=== PATIENT | female | born 1955 | race Caucasian/White ===

== ENCOUNTER 2019-05-27 17:06 | Emergency (ER) | payer OTHER, MEDICAID, SELFPAY ==
[2019-05-27 17:36] VITALS: BP 136/88; PULSE 74; RESP 20; TEMP 36.3; O2SAT 97; BMI 35.7
--- NOTE | 2019-05-27 18:57 | ED.SKABFB ---
HPI - Skin/Abscess/Foreign Bdy General Chief complaint: Skin/Abscess/Foreign Body Stated complaint: rt hip mass black/ blue surg 3x weeks Time Seen by Provider: 05/27/19 18:30 Source: patient Mode of arrival: Family Vehicle Limitations: no limitations History of Present Illness HPI narrative: 63-year-old female smoker with hypertension and hyperlipidemia presents with relatively painless swelling on her right lateral hip. She states that she was ambulating and felt a pop and then noticed swelling and some discoloration. Patient had a right total hip performed at [facility] a few weeks ago. She denies any hip pain. She denies any fever chills and has no nausea, vomiting or diarrhea. Related Data Home Medications Medication Instructions Recorded Confirmed [TUSSIN DM] 5 ml PRN #0 12/02/16 acetaminophen [Tylenol Extra PRN #0 12/02/16 Strength] albuterol sulfate [Ventolin HFA] PRN #0 12/02/16 atorvastatin [Lipitor] 40 mg OR HS #0 12/02/16 carvedilol [Coreg] 6.25 mg OR BID #0 12/02/16 duloxetine 30 mg OR AMCC #0 12/02/16 furosemide 40 mg OR QAM #0 12/02/16 insulin glargine [Lantus U-100 15 u SQ HS #0 12/02/16 Insulin] insulin glulisine U-100 [Apidra 7 u SQ TID #0 12/02/16 U-100 Insulin] ipratropium-albuterol PRN #0 12/02/16 lisinopril 2.5 mg OR QAM #0 12/02/16 methocarbamol PRN #0 12/02/16 Previous Rx's Medication Instructions Recorded hydrocodone-acetaminophen [[place]] 1 - 2 tab PO Q6HP PRN #10 tab 12/02/16 cephalexin [Keflex] 500 mg PO QID 7 Days #28 cap 05/27/19 Allergies Allergy/AdvReac Type Severity Reaction Status Date / Time No Known Allergies Allergy Uncoded 05/27/19 17:41 Review of Systems Constitutional Constitutional: Denies chills, Denies fatigue, Denies fever(s), Denies frequent falls, Denies lethargy and Denies weakness Eyes Eyes: Denies change in vision, Denies eye discharge, Denies irritation and Denies loss of vision ENT Ears, Nose, Mouth, and Throat: Denies change in voice, Denies dizziness, Denies neck pain, Denies sore throat and Denies throat swelling Cardiovascular Cardiovascular: Denies chest pain, Denies irregular heart rhythm, Denies lightheadedness, Denies palpitations, Denies dyspnea, Denies dyspnea on exertion and Denies orthopnea Respiratory Respiratory: Denies cough, Denies dyspnea, Denies dyspnea on exertion and Denies wheezing Gastrointestinal Gastrointestinal: Denies abdominal pain, Denies change in bowel habits, Denies diarrhea, Denies nausea and Denies vomiting Genitourinary Genitourinary: Denies hematuria, Denies flank pain, Denies urinary incontinence and Denies urinary urgency Musculoskeletal Musculoskeletal: Denies back pain, Denies muscle weakness, Denies neck pain, Denies numbness and Denies tingling Integumentary/Breasts Skin/Breast: Denies pruritus, Reports erythema, Denies rash, Reports skin swelling and Denies wounds Neurologic Neurologic: Denies behavioral changes, Denies confusion, Denies dizziness, Denies frequent falls, Denies loss of vision, Denies numbness, Denies tingling and Denies weakness Psychiatric Psychiatric: Denies anxiety, Denies behavioral changes, Denies confusion, Denies depression, Denies homicidal ideation and Denies suicidal ideation Endocrine Endocrine: Denies fatigue, Denies flushing and Denies palpitations Hematologic/Lymphatic Hematologic/Lymphatic: Denies easy bruising Allergic/Immunologic Allergic/Immunologic: Denies urticaria, Denies throat swelling and Denies wheezing Patient History Social History Smoking Status: Current some day smoker alcohol intake frequency: 0-2 drinks per day Substance Use Type: does not use Exam Narrative Exam Narrative: GENERAL 63 year old patient appears stated age. Well-nourished, well-developed patient, in mild distress. HEAD: Atraumatic. Normocephalic. EYES: Pupils equal round and reactive. Extraocular motions intact. No scleral icterus. No injection or drainage. ENT: Nose without bleeding, purulent drainage. Throat without erythema, tonsillar hypertrophy or exudate. Airway patent. NECK: Trachea midline. Non tender CARDIOVASCULAR: Regular rate and rhythm without murmurs, gallops, or rubs. RESPIRATORY: Clear to auscultation. Breath sounds equal bilaterally. No wheezes, rales, or rhonchi. GASTROINTESTINAL: Abdomen soft, non-tender, nondistended. EXTREMITIES: No edema or joint tenderness. Full range of motion of the right hip with flexion extension at the hip as well as internal and external rotation is absent of pain BACK: Nontender without deformity or crepitance. No flank tenderness. NEURO: AOx3. SKIN: Swollen, minimally warm area lateral to right hip. Incision is clean, dry and intact. There is very minimal color change and certainly no significant demarcation. Most likely hematoma is Initial Vital Signs Initial Vital Signs: Vital Signs Temperature 97.3 F L 05/27/19 17:36 Pulse Rate 74 05/27/19 17:36 Respiratory Rate 20 05/27/19 17:36 Blood Pressure 136/88 05/27/19 17:36 Pulse Oximetry 97 05/27/19 17:36 Course Orders Ordered: ED Orders 05/27/19 19:02 XR hip w pel if done RT 2V Stat 05/27/19 20:50 Basic Metabolic Panel Stat Complete Blood Count AUTO DIFF Stat Procalcitonin Stat Discontinued Medications Cefazolin Sodium (Keflex 250 Mg Prepack) 1 bottle MISC SEEINSTR ONE Stop: 05/27/19 22:41 Last Admin: 05/27/19 22:57 Dose: 1 prepack Documented by: NATASHA Cefazolin Sodium (Keflex 250 Mg Prepack) 1 bottle MISC SEEINSTR ONE Stop: 05/27/19 22:43 Last Admin: 05/27/19 23:02 Dose: 1 prepack Documented by: NATASHA Oxycodone/Acetaminophen (Percocet 5/325) 2 tab PO NOW ONE Stop: 05/27/19 22:41 Last Admin: 05/27/19 22:57 Dose: 2 tab Documented by: NATASHA Consultations Consultation #1: call to professor of communication and writing ortho at [facility] whom recommends ABX, DC and follow up with her own orthopedist Vital Signs Vital signs: Vital Signs - 8 hr 05/27/19 19:30 05/27/19 21:08 05/27/19 22:36 Pulse Rate 66 75 78 Respiratory Rate 18 18 16 Blood Pressure [Left Arm] 119/69 128/58 L 101/56 L Pulse Oximetry 96 97 95 MDM - Skin/Abscess/Foreign Bdy Lab Data Result diagrams: 05/27/19 20:50 05/27/19 20:50 Labs: Lab Results 05/27/19 05/27/19 05/27/19 Range/Units 20:50 20:50 20:50 WBC 8.3 (4.5-11.0) X10^3/uL RBC 3.74 L (4.0-5.2) X10^6/uL Hgb 11.4 L (12.0-16.0) g/dL Hct 33.4 L (36-46) % MCV 89.2 (80-100) fL MCH 30.4 (26-34) PG MCHC 34.1 (30-36) % RDW 14.1 (11.6-14.8) % Plt Count 398 (150-400) X10^3/uL Neut % (Auto) 65.3 (50-75) % Lymph % (Auto) 22.0 L (25-40) % [place] % (Auto) 6.6 (3-14) % Eos % (Auto) 5.3 H (2-4) % Baso % (Auto) 0.8 (0-2) % Neut # (Auto) 5400 (4958-4769) /uL Lymph # (Auto) 1800 (5304-9176) /uL [place] # (Auto) 600 (0-900) /uL Eos # (Auto) 400 (0-450) /uL Baso # (Auto) 100 (0-100) /uL Sodium 142 (137-145) mmol/L Potassium 3.8 (3.4-5.1) mmol/L Chloride 100 (98-107) mmol/L Carbon Dioxide 33 H (22-32) mmol/L BUN 19 H (7-17) mg/dL Creatinine 1.30 H (0.52-1.04) mg/dL Estimated GFR 41.5 L (>60) mL/min BUN/Creatinine Ratio 14.6 (6-22) Glucose 147 H (80-110) mg/dL Calcium 10.7 H (8.4-10.2) mg/dL Procalcitonin < 0.05 (<0.5) ng/mL Point of Care Testing Glucose POC 151 MDM Narrative Medical decision making narrative: Multiple etiologies considered including hematoma, postop infection, hardware malfunction or dislocation. X-ray and exam would suggest no fracture, dislocation or hardware problem. Incision is clean, dry and intact without dehiscence. Infection considered but thought less likely. Purplish discoloration most consistent with hematoma. Return precautions given which patient clearly understands based on her ability to verbalize them back. Questions answered to her apparent satisfaction Discharge Plan Departure Patient Disposition: Home Clinical Impression: Hematoma of right hip Qualifiers: Encounter type: initial encounter Qualified Code(s): S70.01XA - Contusion of right hip, initial encounter Discharge Date/Time: 05/27/19 23:15 Instructions: DI for Hematoma (Bruise) Activity Restrictions/Additional Instructions: *You have been diagnosed with [right hip hematoma] *What to do: *Take medications as directed *Follow up with your orthopedist in 2-3 days, call for an appointment. Let them know you were seen in the Emergency Department and that we ask that you be seen in follow up *Return to ER if you should have any new, worsening or concerning symptom Prescriptions: New cephalexin [Keflex] 500 mg capsule 500 mg PO QID 7 Days Qty: 28 RF: 0 No Action hydrocodone-acetaminophen [[place]] 5 MG/325 MG tablet 1 - 2 tab PO Q6HP PRNQty: 10 RF: 0 atorvastatin [Lipitor] 40 MG tablet 40 mg OR HS Qty: 0 RF: 0 insulin glulisine U-100 [Apidra U-100 Insulin] 100 UNIT/1 ML solution 7 u SQ TID Qty: 0 RF: 0 carvedilol [Coreg] 6.25 MG tablet 6.25 mg OR BID Qty: 0 RF: 0 duloxetine 30 MG capsule,delayed release(DR/EC) 30 mg OR AMCC Qty: 0 RF: 0 ipratropium-albuterol 3 ML solution for nebulization PRNQty: 0 RF: 0 insulin glargine [Lantus U-100 Insulin] 100 UNIT/1 ML solution 15 u SQ HS Qty: 0 RF: 0 furosemide 40 MG tablet 40 mg OR QAM Qty: 0 RF: 0 methocarbamol 500 MG tablet PRNQty: 0 RF: 0 lisinopril 2.5 MG tablet 2.5 mg OR QAM Qty: 0 RF: 0 acetaminophen [Tylenol Extra Strength] 500 MG tablet PRNQty: 0 RF: 0 [SORAYAIN DM] 5 ml PRNQty: 0 RF: 0 albuterol sulfate [Ventolin HFA] 90 MCG/PUFF HFA aerosol inhaler PRNQty: 0 RF: 0
--- NOTE | 2019-05-27 19:02 | DI.RAD.S_ITS ---
PROCEDURE: XR HIP W PEL IF DONE RT 2V INDICATIONS: hip pain, recent surgery TECHNIQUE: AP pelvis and lateral view of the right hip acquired. COMPARISON: [facility], [place], [id number] W PEL IF PERFORMED, 12/02/2016, 11:45. FINDINGS: Bones: Patient is status post total right hip arthroplasty, with hardware components in expected positions. The hip joint appears congruent. The visualized bony structures appear intact. Soft tissues: Overlying postoperative changes are noted. No suspicious soft tissue densities. IMPRESSION: Expected appearance post total right hip arthroplasty. Dictated by: Erickson Mcarthur M.D. on 05/27/2019 at 19:27 Approved by: Erickson Mcarthur M.D. on 05/27/2019 at 19:27
[2019-05-27 19:30] VITALS: BP 119/69; PULSE 66; RESP 18; O2SAT 96
--- NOTE | 2019-05-27 19:36 | PC.NURSE ---
Healing incision visible right hip, edges aproximated and without purulent discharge. Area surrounding incision is red, skin hot to the touch.
[2019-05-27 21:07] LABS: Add Manual Diff / Slide Review NO; Basophils Absolute Auto 100 /uL (0-100); Basophils Percent Auto 0.8 % (0-2); Eosinophils Absolute Auto 400 /uL (0-450); Eosinophils Percent Auto 5.3 % (2-4); Hematocrit 33.4 % (36-46); Hemoglobin 11.4 g/dL (12.0-16.0); Lymphocytes Absolute Auto 1800 /uL (1100-4500); Mean Corpuscular HGB Conc 34.1 % (30-36); Mean Corpuscular Hemoglobin 30.4 PG (26-34); Mean Corpuscular Volume 89.2 fL (80-100); Monocytes Absolute Auto 600 /uL (0-900); Monocytes Percent Auto 6.6 % (3-14); Neutrophils Absolute Auto 5400 /uL (1500-7000); Neutrophils Percent Auto 65.3 % (50-75); Platelet Count 398 X10^3/uL (150-400); Red Blood Cell Count 3.74 X10^6/uL (4.0-5.2); Red Cell Distribution Width 14.1 % (11.6-14.8); White Blood Cell Count 8.3 X10^3/uL (4.5-11.0)
[2019-05-27 21:08] VITALS: BP 128/58; PULSE 75; RESP 18; O2SAT 97
[2019-05-27 21:25] LABS: BUN Creatinine Ratio 14.6 (6-22); Blood Urea Nitrogen 19 mg/dL (7-17); Calcium 10.7 mg/dL (8.4-10.2); Carbon Dioxide 33 mmol/L (22-32); Chloride 100 mmol/L (98-107); Estimated Glomerular Filt Rate 41.5 mL/min (>60); Glucose 147 mg/dL (80-110); HEMOLYSIS < 15 (0-50); Potassium 3.8 mmol/L (3.4-5.1); Sodium 142 mmol/L (137-145)
[2019-05-27 21:40] LABS: Procalcitonin < 0.05 ng/mL (<0.5)
[2019-05-27 22:36] VITALS: BP 101/56; PULSE 78; RESP 16; O2SAT 95
[2019-05-27] MEDS: cephALEXin 250 MG PREPACK 1 BOTTLE MISC ×2 (22:57→23:02)
[2019-05-27] MEDS: OXYCODONE/ACETAMINOPHEN 5/325 TABLET 2 TAB PO (22:57)
== END 2019-05-27 23:15 | disposition home or self-care (01) ==
PROVIDERS: Emergency Provider Emergency Medicine
DX: S70.01XA Contusion of right hip, initial encounter (principal); I10 Essential (primary) hypertension; E78.5 Hyperlipidemia, unspecified
CPT/HCPCS: 36415; 73502; 80048; 82962; 84145; 85025; 99283; 99284